=== PATIENT | female | born 1960 | race Two or more races ===

== ENCOUNTER → 2024-07-21 | Day surgery (SDC) | payer OTHER ==
[~2024-07-21] VITALS: Ht 157.5 cm; Wt 107.0 kg
[~2024-07-21] MED LIST: ANAS1TAB7 PO; ASPI81CH59 PO; CALC1TAB64 PO; CHOL20007 OR; DOCU50LI8 PO; ERGO1CAP23 PO; GABA-1250 PO; LIDOCAINE 1% INJ PF 5ML AMP ONE; LOSA-533 PO; MAGN400T40 OR; METO25TA93 PO; MULT-1166 PO; OMEG100062 PO; PRAV20TA3 GT; PROPOFOL 10 MG/ML 20 ML IV ONE; SEMA2INJ3 SC; SIME80CH49 PO; SITA100T7 PO
[2024-07-21 09:19] VITALS: TEMP 97.2; O2SAT 97
--- NOTE | 2024-07-21 09:19 | DVHHP2 ---
GI H&P Pre-Op Assessment Date: 07/21/24 Chief complaint: colon cancer screening HPI: per clinic note Past medical history: per clinic note Past surgical history: per clinic note Family history: per clinic note Physical exam: General: NAD, AAOX3 HEENT: PERRL, no scleral icterus, normal hearing, gums without lesions or bleeding, oropharynx clear without erythema or exudate. Neck: Supple without enlargement of the thyroid, or lymphadenopathy. Chest: Normal size and shape, no tenderness, lung thompson clear to auscultation and percussion, nonlabored breathing. Heart: RRR, no murmur Abdomen: non-distended, no tenderness to palpation, +BS, no hepatosplenomegaly Extremities: no edema Neurological: CN II-XII intact, sensation intact in all extremities, 5+ strength in all extremities Skin: No rashes, No jaundice Assessment: - colon cancer screening Plan: - Colonoscopy - Risks (bleeding, infection, perforation, reaction to sedation medications and cardiopulmonary arrest) and benefit of the procedure were explained to patient. Patient agrees to undergo the procedure. NELIDA CHRISTIANSON MD Jul 21, 2024 09:19
--- NOTE | 2024-07-21 09:21 | DVHOP2 ---
Operative Report DATE OF OPERATION: 07/21/24 PROCEDURE: Colonoscopy. PREOPERATIVE INDICATION: The patient is a 63 -year-old female undergoing colonoscopy for colon cancer screening. POSTOPERATIVE DIAGNOSES: 1. 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 2. 2 mm cecal polyp removed with cold biopsy forceps. 3. 5 mm transverse colon polyp removed with hot snare and retrieved. 4. Few small diverticulosis. 6. Internal hemorrhoids. PROCEDURE PERFORMED BY: Andres Cummings M.D. SCOPE: Olympus videocolonoscope. ASA CLASS: 3 PREOPERATIVE MEDICATIONS: MAC with Richi INPATIENT PHARMACIST. PROCEDURE IN DETAIL: After obtaining an informed consent, the patient was placed on left lateral decubitus position. She was then sedated with the above medications. A rectal examination was performed that was normal. The colonoscope was then passed through the anus into the rectosigmoid and through the descending, transverse, and ascending colon up to the cecum with visualization of the appendiceal orifice, base of the cecum and the ileocecal valve. Five AVMs in right colon were cauterized with gold probe. A 2 mm cecal polyp removed with cold biopsy forceps. A 5 mm transverse colon polyp removed with hot snare and retrieved. There was a few small diverticulosis. There were internal hemorrhoids. The colonoscope was then withdrawn. The patient tolerated the procedure well without difficulty. WITHDRAWAL TIME: 20 minutes QUALITY OF THE PREP: [place] Bowel Prep score: 6 COMPLICATIONS : None SPECIMENS: Colon polyps DISPOSITION: D/C to home PLAN: 1. Repeat colonoscopy base on biopsy result ANDRES CUMMINGS MD Jul 21, 2024 09:21
--- NOTE | 2024-07-21 09:22 | DVHDS2 ---
Physician Discharge Progress N Final Diagnosis: AVM, colon polyps, diverticulosis, internal hemorrhoids. Operations or Procedures: Operations or Procedures Colonoscopy with cold biopsy polypectomy, hot snare polypectomy, cauterization with gold probe. Condition on Discharge: Good Disposition: Home Discharge Instructions: Diet: Regular Activity: No Restrictions, As Tolerated Medications: resume with previous home medicaitons. Follow Up Care: Discharge Statement: "Patient was advised to return to the ER or call 911 if any headaches, dizziness, shortness of breath, chest pain, abdominal pain, bleeding, fevers, or worsening of medical condition. Patient was counseled about treatment plan, medications, possible side effects, patientverbalized understanding. All questions were answered to the best of my ability. This discharge took greater then 30 minutes in planning, reviewing documentation, counseling the patient, and discussing with other team members." NELIDA CHRISTIANSON MD Jul 21, 2024 09:22
[2024-07-21 09:45] VITALS: BP 163/72; PULSE 70; RESP 12; O2SAT 98
== END | disposition home or self-care (01) ==
LOC: GI 07:13
PROVIDERS: ATTEND Internal Medicine Gastroenterology
DX: Z12.11 Encounter for screening for malignant neoplasm of colon (principal); D12.0 Benign neoplasm of cecum; D12.3 Benign neoplasm of transverse colon; K63.5 Polyp of colon; K55.20 Angiodysplasia of colon without hemorrhage; K57.30 Diverticulosis of large intestine without perforation or abscess without bleeding; K64.8 Other hemorrhoids; I10 Essential (primary) hypertension; E11.9 Type 2 diabetes mellitus without complications; E78.00 Pure hypercholesterolemia, unspecified; E66.01 Morbid (severe) obesity due to excess calories; Z68.41 Body mass index [BMI] 40.0-44.9, adult; Z79.82 Long term (current) use of aspirin; Z79.899 Other long term (current) drug therapy; Z85.3 Personal history of malignant neoplasm of breast; Z90.13 Acquired absence of bilateral breasts and nipples; Z90.49 Acquired absence of other specified parts of digestive tract; Z98.84 Bariatric surgery status; Z98.891 History of uterine scar from previous surgery; Z98.890 Other specified postprocedural states; Z87.891 Personal history of nicotine dependence; Z88.8 Allergy status to other drugs, medicaments and biological substances; Z80.3 Family history of malignant neoplasm of breast
CPT/HCPCS: 45380; 45385; 45388; 82962; 88305; J2704; J7030